=== PATIENT | female | born 1990 | race Asian ===

== ENCOUNTER 2022-11-06 09:01 | Emergency (ER) | payer OTHER ==
[~2022-11-06] VITALS: Ht 154.9 cm; Wt 79.4 kg
[2022-11-06 09:01] VITALS: BP_SYST 136
--- NOTE | 2022-11-06 09:10 | NUR ---
[facility] IN BY [facility], PLACED IN BED #6 AND TRIAGED. REPORT GIVEN TO KIM Addendum: 11/06/22 at 0912 by WAYNE REPORT CHANGED TO LELAND
[2022-11-06] MEDS ORDERED: KETOROLAC TROMETHAMINE 60 MG/2 ML VIAL IM ONE (09:15)
--- NOTE | 2022-11-06 09:25 | NUR ---
PT BIBA AWAKE AND ALERT AOX4, NO SOB OR DISTRESS. PT C/O LEFT SIDE WEAKNESS TO ARM AND LEGS. PT ALSO STATES MIGRAIN. PT HAS HX OF MIGRAIN. PTS STATED SAME SYMPTOMS ACCURE 4 DAYS AGO AND WAS SCHEDULED FOR MRI ON Oct,. PT DENIES N/V.
--- NOTE | 2022-11-06 09:32 | NUR ---
MD DR SULLIVAN AT BEDSIDE
[2022-11-06 09:38] VITALS: BP_SYST 136
--- NOTE | 2022-11-06 10:20 | NUR ---
Patient given written and verbal discharge instructions and verbalizes understanding. ER MD DR SULLIVAN discussed with patient the results and treatment provided. Patient in stable condition. ID arm band removed. Patient educated on pain management and to follow up with PMD. Pain Scale 0/10. Opportunity for questions provided and answered. Medication side effect fact sheet provided.
== END 2022-11-06 10:20 | disposition home or self-care (01) ==
LOC: SED 09:01
DX: G43.909 Migraine, unspecified, not intractable, without status migrainosus (principal); Z79.899 Other long term (current) drug therapy
CPT/HCPCS: 99283; 81002; 81025; 96372; J1885